=== PATIENT | male | born 1940 | race Caucasian/White ===

== ENCOUNTER 2021-07-05 11:28 | Inpatient (IN) ==
[2021-07-05 16:08] LABS: Basophils % 0.5 %; Eosinophils # 0.1 K/mcL (0.0-0.6); Eosinophils % 1.1 %; Hematocrit 44.1 % (37.5-50.1); Hemoglobin 14.2 g/dL (12.9-16.9); Immature Granulocytes % 1.5 % (0-4); Lymphocytes % 11.1 %; Mean Corpuscular HGB Conc 32.2 g/dL (31.6-35.5); Mean Corpuscular Hemoglobin 28.6 pg (28.0-33.3); Mean Corpuscular Volume 88.7 fL (83.0-100.0); Mean Platelet Volume 11.2 fL (9.4-12.4); Monocytes % 11.7 %; Neutrophils # 6.3 K/mcL (1.6-8.9); Platelet Count 173 K/mcL (140-400); Red Blood Count 4.97 M/mcL (4.19-5.50); Red Cell Distribution Width 17.1 % (11.5-14.5); Segmented Neutrophils % 74.1 %; White Blood Count 8.5 K/mcL (4.3-11.1)
[2021-07-05 16:12] LABS: Bilirubin,Urine Negative (Negative); Blood,Urine Negative (Negative); Clarity,Urine Clear (Clear); Color,Urine Yellow (Yellow); Glucose,Urine (UA) Normal (Normal); Hyaline Casts,Urine Moderate per lpf (None Seen); Ketones,Urine Negative (Negative); Leukocyte Esterase,Urine Trace (Negative); Mucus,Urine Few per lpf (None-Few); Nitrite,Urine Negative (Negative); PH,Urine 5.5 pH Units (5.0-8.0); Protein,Urine Trace mg/dL (Neg-Trace); RBC,Urine 0-3 per hpf (0-3); Specific Gravity,Urine 1.023 (1.010-1.025); Squamous Epithelial Cell,Urine Few per hpf (None-Few); Urobilinogen,Urine Normal (Normal)
[2021-07-05 16:26] LABS: Alanine Aminotransferase 13 Units/L (7-52); Albumin 3.9 g/dL (3.5-5.7); Albumin/Globulin Ratio 1.4 (1.1-2.2); Alkaline Phosphatase 74 Units/L (34-104); Aspartate Amino Transferase 21 Units/L (13-39); BUN/Creatinine Ratio 15 (6-26); Bilirubin,Total 0.5 mg/dL (0.3-1.0); Blood Urea Nitrogen 55 mg/dL (8-23); Calcium 8.8 mg/dL (8.6-10.3); Carbon Dioxide 19 mEq/L (23-29); Chloride 101 mEq/L (98-107); Globulin 2.7 g/dL (2.4-3.5); Glucose 100 mg/dL (70-105); Osmolality,Calculated 291 (280-300); Sodium 133 mEq/L (136-145); Total Protein 6.6 g/dL (6.4-8.9); Troponin I < 0.03 ng/mL (< 0.04); eGFR For African Americans 19 (> 60); eGFR For Non-African Americans 16 (> 60)
[2021-07-05] MEDS ORDERED: 0.9 % Sodium Chloride 1,000 ML ONE (17:43)
[2021-07-05] MEDS ORDERED: 0.9 % Sodium Chloride 1,000 ML IVC ONE (17:47)
[2021-07-05] MEDS ORDERED: Mag Hydrox/Al Hydrox/Simeth 30 ML UDC PO PRN (18:35)
[2021-07-05] MEDS ORDERED: Acetaminophen 325 MG TABLET PO PRN (18:35)
[2021-07-05] MEDS ORDERED: Naloxone 0.4 MG/ML INJ IVP PRN (18:35)
[2021-07-05] MEDS ORDERED: Ondansetron ODT 4 MG TAB.RAPDIS SL PRN (18:35)
[2021-07-05 19:50] LABS: INR 1.4; Prothrombin Time 15.8 Seconds (9.4-12.1)
[2021-07-05] MEDS: 0.9 % Sodium Chloride 1,000 ML IVC SCH (20:46)
[2021-07-05] MEDS: Cholecalciferol (D-3) 1,000 UNIT (25MCG) TABLET PO SCH (20:47)
[2021-07-05] MEDS ORDERED: Apixaban 5 MG TABLET PO SCH (21:00)
[2021-07-06 05:10] LABS: Basophils % 0.3 %; Eosinophils # 0.3 K/mcL (0.0-0.6); Eosinophils % 3.9 %; Hematocrit 39.4 % (37.5-50.1); Hemoglobin 13.2 g/dL (12.9-16.9); Immature Granulocytes % 1.3 % (0-4); Lymphocytes # 0.8 K/mcL (0.6-4.6); Lymphocytes % 11.1 %; Mean Corpuscular HGB Conc 33.5 g/dL (31.6-35.5); Mean Corpuscular Hemoglobin 29.2 pg (28.0-33.3); Mean Corpuscular Volume 87.2 fL (83.0-100.0); Mean Platelet Volume 10.9 fL (9.4-12.4); Monocytes # 0.9 K/mcL (0.0-1.3); Monocytes % 12.8 %; Platelet Count 169 K/mcL (140-400); Red Blood Count 4.52 M/mcL (4.19-5.50); Segmented Neutrophils % 70.6 %; White Blood Count 7.1 K/mcL (4.3-11.1)
[2021-07-06 05:24] LABS: Calcium 8.4 mg/dL (8.6-10.3); Potassium 4.5 mEq/L (3.5-5.1)
[2021-07-06] MEDS: Aspirin Enteric Coated 81 MG Tablet PO SCH (08:00)
[2021-07-06] MEDS: Cyanocobalamin (B-12) 1,000 MCG TABLET PO SCH (08:01)
[2021-07-06 10:35] LABS: Adenovirus Not Detected (Not Detect); Coronavirus 229E Not Detected (Not Detect); Coronavirus HKU1 Not Detected (Not Detect); Coronavirus NL63 Not Detected (Not Detect); Coronavirus OC43 Not Detected (Not Detect); Human Metapneumovirus DETECTED (Not Detect); SARS-CoV-2 Not Detected (Not Detect)
[2021-07-06 10:36] LABS: Bordetella Pertussis Not Detected (Not Detect); Chlamydophila pneumoniae Not Detected (Not Detect); Human Rhinovirus/Enterovirus DETECTED (Not Detect); Influenza A Subtype 2009 H1 Not Detected (Not Detect); Influenza B Not Detected (Not Detect); Mycoplasma pneumoniae Not Detected (Not Detect); Parainfluenza Virus 1 Not Detected (Not Detect); Parainfluenza Virus 2 Not Detected (Not Detect); Parainfluenza Virus 3 Not Detected (Not Detect); Parainfluenza Virus 4 Not Detected (Not Detect); Respiratory Syncytial Virus Not Detected (Not Detect)
[2021-07-06] MEDS: Apixaban 5 MG TABLET PO SCH ×2 (11:41→20:06)
[2021-07-06] MEDS: 0.9 % Sodium Chloride 1,000 ML IVC SCH (14:45)
[2021-07-06] MEDS: Cholecalciferol (D-3) 1,000 UNIT (25MCG) TABLET PO SCH (20:06)
[2021-07-06] MEDS ORDERED: Haloperidol Lactate 5 MG/ML VIAL IVP ONE (23:17)
[2021-07-07] MEDS ORDERED: Haloperidol Lactate 5 MG/ML VIAL IVP ONE (00:21)
[2021-07-07 06:50] LABS: Albumin 3.2 g/dL (3.5-5.7); Albumin/Globulin Ratio 1.3 (1.1-2.2); Bilirubin,Direct 0.1 mg/dL (0.0-0.2); Bilirubin,Indirect 0.5 mg/dL (0.0-1.0); Bilirubin,Total 0.6 mg/dL (0.3-1.0); Calcium 8.2 mg/dL (8.6-10.3); Globulin 2.4 g/dL (2.4-3.5); Potassium 4.3 mEq/L (3.5-5.1); Total Protein 5.6 g/dL (6.4-8.9)
[2021-07-07] MEDS: Cyanocobalamin (B-12) 1,000 MCG TABLET PO SCH ×2 (07:55→10:36)
[2021-07-07] MEDS: Aspirin Enteric Coated 81 MG Tablet PO SCH ×2 (07:55→10:36)
[2021-07-07] MEDS: Apixaban 5 MG TABLET PO SCH ×3 (07:55→21:20)
[2021-07-07] MEDS ORDERED: Haloperidol Lactate 5 MG/ML VIAL IVP STA (08:12)
[2021-07-07] MEDS ORDERED: QUEtiapine Fumarate 25 MG TABLET PO ONE ×2 (08:21→12:21)
[2021-07-07] MEDS ORDERED: Ipratropium/Albuterol Neb 3 ML IH PRN (10:43)
[2021-07-07] MEDS ORDERED: Perflutren Lipid Microsphere 1.3 ML in 0.9 % Sodium Chloride 8.7 ML IVP PRN (10:45)
[2021-07-07] MEDS ORDERED: Furosemide 20 MG/2 ML VIAL IVP ONE (10:46)
[2021-07-07 12:48] LABS: VBG HCO3 21 mEq/L (21-27); VBG PCO2 40 mmHg (41-51); VBG PH 7.32 pH Units (7.32-7.42); VBG PO2 73 mmHg (25-50)
[2021-07-07 13:31] LABS: Troponin I 0.04 ng/mL (< 0.04)
[2021-07-07 13:41] LABS: Thyroid Stimulating Hormone 2.098 mcIU/mL (0.340-5.600)
[2021-07-07] MEDS: predniSONE 20 MG TABLET PO SCH (15:37)
[2021-07-07] MEDS: Ipratropium/Albuterol Neb 3 ML IH SCH ×3 (16:00→21:19)
[2021-07-07] MEDS: Cholecalciferol (D-3) 1,000 UNIT (25MCG) TABLET PO SCH (21:20)
[2021-07-07] MEDS: QUEtiapine Fumarate 25 MG TABLET PO SCH (21:21)
[2021-07-08] MEDS: Ipratropium/Albuterol Neb 3 ML IH SCH ×4 (03:48→20:57)
[2021-07-08 05:02] LABS: Calcium 8.5 mg/dL (8.6-10.3); Potassium 4.3 mEq/L (3.5-5.1)
[2021-07-08] MEDS: predniSONE 20 MG TABLET PO SCH (09:33)
[2021-07-08] MEDS: Aspirin Enteric Coated 81 MG Tablet PO SCH (09:33)
[2021-07-08] MEDS: Apixaban 5 MG TABLET PO SCH ×2 (09:33→19:46)
[2021-07-08] MEDS: Cyanocobalamin (B-12) 1,000 MCG TABLET PO SCH (09:34)
[2021-07-08] MEDS: QUEtiapine Fumarate 25 MG TABLET PO SCH ×2 (09:34→19:47)
[2021-07-08] MEDS ORDERED: Furosemide 20 MG/2 ML VIAL IVP ONE (14:59)
[2021-07-09 02:44] LABS: Calcium 8.8 mg/dL (8.6-10.3); Potassium 4.3 mEq/L (3.5-5.1)
[2021-07-09] MEDS: Ipratropium/Albuterol Neb 3 ML IH SCH ×4 (03:26→21:05)
[2021-07-09] MEDS ORDERED: Ringers Solution, Lactated 1,000 ML IVC SCH (07:45)
[2021-07-09] MEDS: Aspirin Enteric Coated 81 MG Tablet PO SCH (08:37)
[2021-07-09] MEDS: QUEtiapine Fumarate 25 MG TABLET PO SCH ×2 (08:37→19:23)
[2021-07-09] MEDS: Apixaban 5 MG TABLET PO SCH ×2 (08:38→19:23)
[2021-07-09] MEDS: predniSONE 20 MG TABLET PO SCH (08:38)
[2021-07-09] MEDS: Cyanocobalamin (B-12) 1,000 MCG TABLET PO SCH (08:38)
[2021-07-09] MEDS: Cholecalciferol (D-3) 1,000 UNIT (25MCG) TABLET PO SCH ×2 (15:29→19:23)
[2021-07-09] MEDS ORDERED: Haloperidol Lactate 5 MG/ML VIAL IVP ONE ×2 (15:35→22:30)
[2021-07-10] MEDS ORDERED: Haloperidol Lactate 5 MG/ML VIAL IVP ONE (03:27)
[2021-07-10] MEDS: Ipratropium/Albuterol Neb 3 ML IH SCH ×3 (03:42→15:36)
[2021-07-10 05:28] LABS: Potassium 4.1 mEq/L (3.5-5.1)
[2021-07-10] MEDS: Apixaban 5 MG TABLET PO SCH (07:39)
[2021-07-10] MEDS: QUEtiapine Fumarate 25 MG TABLET PO SCH (07:39)
[2021-07-10] MEDS: Aspirin Enteric Coated 81 MG Tablet PO SCH (07:39)
[2021-07-10] MEDS: Cyanocobalamin (B-12) 1,000 MCG TABLET PO SCH (07:39)
[2021-07-10] MEDS: predniSONE 20 MG TABLET PO SCH (07:40)
[2021-07-10] MEDS ORDERED: Ringers Solution, Lactated 250 ML IVC SCH (10:00)
[2021-07-10] MEDS ORDERED: Ziprasidone 10 MG, Closed System Device IM Kit 1 EACH in Water for inj. (sterile) 0.5 ML IM STA (10:21)
[2021-07-10 10:30] VITALS: BP 175/91; PULSE 110; TEMP 98.6; O2SAT 95
[2021-07-10] MEDS ORDERED: Ringers Solution, Lactated 500 ML IVC SCH (11:00)
[2021-07-10 15:06] LABS: Calcium 8.9 mg/dL (8.6-10.3); Potassium 4.3 mEq/L (3.5-5.1)
== END 2021-07-10 17:35 | disposition home health service (06) | DRG 682 ==
LOC: EMEROOARM 11:28 → 2ANU 11:28 → SUATTDRO 17:17 → 2ANU 18:25
PROVIDERS: ADMIT Hospitalist; ATTEND Student in an Organized Health Care Education/Training Program